=== PATIENT | female | born 1940 | race Caucasian/White ===

== ENCOUNTER 2022-04-19 11:28 | Emergency (ER) | payer MEDICARE, SELFPAY ==
--- NOTE | 2022-04-19 11:48 | ED_ITS ---
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 Everything went well, she states she was hydrating when she was preparing her garden, she was drinking lemonade and water, on Sunday she was resting in the kitchen in the chair. She does not know if she passed out or fell asleep, next thing you know she was on the ground. she hit the left side of her head, she is not currently on any blood thinners. she denies any back pain or neck pain. since then she has had increased fatigue, she has also had some lightheadedness, she does have a slight headache on that left temporal side. No nausea or vomiting, chest pain or shortness of breath, she has been eating and drinking but last. No history of any CAD or stroke. Patient usually ambulates without any difficulty. She denies any fevers, chills myalgias arthralgias. due to the recent fall and increased fatigue he has presents emergency department. Related Data Home Medications Medication Instructions Recorded Confirmed ascorbic acid (vitamin C) 1,000 mg 1 g PO DAILY 04/19/22 04/19/22 tablet (C-1000) betamethasone dipropionate 0.05 % 1 applic topical DAILY PRN 04/19/22 04/19/22 topical spray with pump calcipotriene 0.005 % topical cream applic topical PRN 04/19/22 estradiol cream 04/19/22 lisinopril 20 mg tablet 20 mg PO DAILY 04/19/22 04/19/22 metoprolol succinate 25 mg 25 mg PO DAILY 04/19/22 04/19/22 tablet,extended release 24 hr metronidazole 0.75 % topical cream applic topical BID 04/19/22 omeprazole 20 mg capsule,delayed 20 mg PO DAILY PRN 04/19/22 04/19/22 release sodium nitrate eye drop 1 drp ophthalmic (eye) BID 04/19/22 04/19/22 tocilizumab 200 mg/10 mL (20 280 mg IV Q3W 04/19/22 04/19/22 mg/mL) intravenous solution (Actemra) vit C 250 mg-vit E 90 mg-zinc 40 2 tab PO DAILY 04/19/22 04/19/22 mg-copper 1 [id number] capsule (PreserVision AREDS-2) zoledronic acid 5 mg/100 mL in 5 ea IV 04/19/22 mannitol 5 %-water intravenous piggybck (Reclast) Previous Rx's Medication Instructions Recorded fluticasone propionate 50 2 spray intranasal DAILY #16 grams 04/03/22 mcg/actuation nasal spray,suspension Allergies Allergy/AdvReac Type Severity Reaction Status Date / Time latex AdvReac Intermediate Rash Verified 04/19/22 12:31 Review of Systems Status of ROS: Reports: 10 or more systems reviewed and unremarkable except as noted in History and below PFSH [facility] Social History Smoking Status: Unknown if ever smoked Exam Narrative: Exam Narrative: general: no obvious distress sitting comfortably HEENT: chronic ecchymosis to the left temporal region, no step-offs, no associated contusion pupils equal round and reactive to light peripheral vision normal bilateral, extraocular muscles intact neck: supple, nontender to palpation, full range of motion lungs: clear to auscultation bilaterally heart: normal sinus rhythm, S1-S2 abdomen: bowel sounds present, soft, nontender to palpation extremities: +5 strength in her upper and lower extremities. no weakness. neuro: alert awake and oriented x3, no focal deficits on exam psych: mood and affect normal Const: Vital Signs, click to edit/add: Vital Signs - 24 hr 04/19/22 12:05 04/19/22 13:45 Temperature 98.4 F Pulse Rate [Pulse Oximeter] 78 76 Respiratory Rate 14 14 Blood Pressure [Ri ght Upper Arm] 136/81 143/80 H Pulse Oximetry 98 96 Oxygen Delivery Me thod Room Air Room Air Course Course Hospital Course: 12:00 PM: AIDET performed. vitals are normal. W workup will include IV peripheral, 0.9 normal saline bolus, will obtain CT head without IV contrast due to the moderate head injury and location, will obtain basic labs including CBC, BMP, troponin and EKG. patient does not want anything for pain at this time. Differential diagnosis include life-threatening of subarachnoid hemorrhage, subdural hemorrhage and epidural hemorrhage. Other differential diagnosis include concussion and close head injury as well as vasovagal episode orthostatics syncope seizures cardiac arrhythmia. Reevaluation(s) Reevaluation #1: Patient was updated on her EKG, lab and imaging results, CT head without IV contrast showed no acute intracranial abnormality. EKG showed a normal sinus rhythm with a incomplete right bundle branch block, BPM 72, no acute ST changes. Labs were reassuring, CBC showed no leukocytosis or anemia, metabolic panel within normal limits, no electrolyte abnormalities renal function within normal limits, troponin negative. Reassurance given, patient was ambulating with no difficulties, plan would be to discharge he will follow up with her primary care provider over the next 7-10 days. Return precautions given. Time: 13:34 Vital Signs Vital signs: Initial Vital Signs Temperature 98.4 F 04/19/22 12:05 Temperature Source Temporal Artery Scan 04/19/22 12:05 Pulse Rate 78 04/19/22 12:05 Respiratory Rate 14 04/19/22 12:05 Blood Pressure 136/81 04/19/22 12:05 Blood Pressure Mean 99 04/19/22 12:05 Blood Pressure Position Supine 04/19/22 12:05 Pulse Oximetry 98 04/19/22 12:05 Oxygen Delivery Method 04/19/22 12:05 Vital Signs Temperature 98.4 F 04/19/22 12:05 Pulse Rate 78 04/19/22 12:05 Respiratory Rate 14 04/19/22 12:05 Blood Pressure 136/81 04/19/22 12:05 Pulse Oximetry 98 04/19/22 12:05 Oxygen Delivery Method 04/19/22 12:05 Temperature 98.4 F 04/19/22 12:05 Pulse Rate 76 04/19/22 13:45 Respiratory Rate 14 04/19/22 13:45 Blood Pressure 143/80 H 04/19/22 13:45 Pulse Oximetry 96 04/19/22 13:45 Oxygen Delivery Method 04/19/22 13:45 Medical Decision Making Lab Data Labs: Lab Results 04/19/22 04/19/22 04/19/22 Range/Units 13:30 13:30 13:30 WBC 6.75 (4.50-11.00) K/uL RBC 4.76 (4.00-5.20) m/uL Hgb 13.5 (12.0-16.0) gm/dL Hct 42.1 (33.0-51.0) % MCV 88 (80-100) fL MCH 28 (26-34) pg MCHC 32 (32-36) gm/dL RDW Coeff of Luz 15.2 (11.5-15.5) % Plt Count 245 (140-440) K/uL Neut % (Auto) 57.6 (42.0-72.0) % Lymph % (Auto) 30.4 (20-44) % Beaver % (Auto) 8.6 (0.0-11.0) % Eos % (Auto) 2.2 (0.0-7.0) % Baso % (Auto) 0.9 (0.0-3.0) % Neut # (Auto) 3.89 (1.7-7.0) K/uL Lymph # (Auto) 2.05 (0.90-2.90) K/uL Beaver # (Auto) 0.60 (0.00-0.90) K/UL Eos # (Auto) 0.15 (0.00-0.50) K/uL Baso # (Auto) 0.06 (0.00-0.30) K/uL Abs Immat Gran (auto) 0.02 (0.00-0.30) K/uL Sodium 140 (135-149) mmol/L Potassium 4.3 (3.6-5.1) mmol/L Chloride 107 (96-114) mmol/L Carbon Dioxide 28 (20-32) mmol/L BUN 19 (7-30) mg/dL Creatinine 0.6 (0.5-1.5) mg/dL Estimated Creat Clear 38.10 Estimated GFR 90 ml/min Glucose 88 (60-115) mg/dL Calcium 8.8 (8.4-10.6) mg/dL Troponin I < 0.01 L (0.01-0.04) ng/mL Discharge Plan Discharge Clinical Impression: Fall from chair, Fatigue, Head injury Patient Disposition: Home, Self-Care Condition: Improved Instructions: Head Injury (ED), Fatigue (ED) Additional Instructions: To follow-up with primary care provider here at [facility] over the next 7-10 days, return precautions given. Activity Level: Activity as Tolerated Prescriptions: No Action lisinopril 20 mg tablet 20 mg PO DAILY Label Comments: TAKE 1 TABLET BY MOUTH EVERY DAY Actemra 200 mg/10 mL (20 mg/mL) solution 280 mg IV Q3W Rx Instructions: administer as a 1 hr infusion every 12-13 weeks omeprazole 20 mg capsule,delayed release(DR/EC) 20 mg PO DAILY PRN metoprolol succinate 25 mg tablet extended release 24 hr 25 mg PO DAILY sodium nitrate eye drop 1 drp ophthalmic (eye) BID Rx Instructions: both eyes twice daily ascorbic acid (vitamin C) [C-1000] 1,000 mg tablet 1 g PO DAILY PreserVision AREDS-2 250-90-40-1 mg capsule 2 tab PO DAILY zoledronic [id number] [Reclast] 5 mg/100 mL piggyback 5 ea IV Rx Instructions: 5mg, last infusion August 07 betamethasone dipropionate 0.05 % spray with pump 1 applic topical DAILY PRN calcipotriene 0.005 % cream TOPICAL PRN Label Comments: APPLY TO THE BODY AREAS TWICE DAILY ON SUNDAY, SUNDAY, SUNDAY AND SUNDAY. metronidazole 0.75 % cream TOPICAL BID Label Comments: APPLY TO THE FACE 2 TIMES A DAY estradiol cream fluticasone propionate 50 mcg/actuation spray,suspension 2 spray intranasal DAILY Qty: 16 2RF Rx Instructions: administer into each nostril Follow Up/Referrals: Sadiq Santana MD [Primary Care Provider] - Stand Alone Forms: [facility] Info Instructions
[2022-04-19 12:05] VITALS: BP 136/81; PULSE 78; RESP 14; TEMP 36.9; O2SAT 98; BMI 21.1
--- NOTE | 2022-04-19 12:17 | CRLHL7_ITS ---
For Patients: As a result of the Century Cures Act, medical imaging exams and procedure reports are released immediately into your electronic medical record. You may view this report before your referring provider. If you have questions, please contact your health care provider. INDICATION: FALL ON TEMPORAL AREA. ?LOC TECHNIQUE: Head CT without contrast. COMPARISON: None. FINDINGS: There are moderate nonspecific low attenuation white matter changes consistent with chronic microvascular disease. No intraparenchymal hemorrhage or extra-axial fluid collection. Cronin-white junction is preserved. Mild parenchymal volume loss. Mild prominence of the ventricular system likely related to expected dilatation due to central volume loss. The visualized paranasal sinuses and mastoid air cells demonstrate no acute or significant findings. The visualized orbits are grossly unremarkable. No skull fractures. IMPRESSION: No acute intracranial abnormality. Specifically, no evidence of intracranial hemorrhage. Moderate chronic microvascular ischemic changes. Please note that all CT scans at this facility use dose modulation, iterative reconstruction, and/or weight-based dosing when appropriate to reduce radiation dose to as low as reasonably achievable. Dictated by Fernando Youssef MD @ 04/19/2022 1:30:49 PM (Electronically Signed)
[2022-04-19 13:40] LABS: Basophils Absolute Auto 0.06 K/uL (0.00-0.30); Basophils Percent Auto 0.9 % (0.0-3.0); Eosinophils Absolute Auto 0.15 K/uL (0.00-0.50); Eosinophils Percent Auto 2.2 % (0.0-7.0); Hematocrit 42.1 % (33.0-51.0); Hemoglobin* 13.5 gm/dL (12.0-16.0); Immature Granulocytes Abs Auto 0.02 K/uL (0.00-0.30); Lymphocytes Absolute Auto 2.05 K/uL (0.90-2.90); Lymphocytes Percent Auto 30.4 % (20-44); Mean Corpuscular HGB Conc 32 gm/dL (32-36); Mean Corpuscular Hemoglobin 28 pg (26-34); Mean Corpuscular Volume 88 fL (80-100); Monocytes Percent Auto 8.6 % (0.0-11.0); Neutrophils Absolute Auto 3.89 K/uL (1.7-7.0); Neutrophils Percent Auto 57.6 % (42.0-72.0); Platelet Count* 245 K/uL (140-440); RDW Coefficient of Variation % 15.2 % (11.5-15.5); Red Blood Count 4.76 m/uL (4.00-5.20); White Blood Count* 6.75 K/uL (4.50-11.00)
[2022-04-19 13:45] VITALS: BP 143/80; PULSE 76; RESP 14; O2SAT 96
[2022-04-19 14:06] LABS: Chloride* 107 mmol/L (96-114); Potassium* 4.3 mmol/L (3.6-5.1); Sodium* 140 mmol/L (135-149)
[2022-04-19 14:09] LABS: Blood Urea Nitrogen* 19 mg/dL (7-30); Calcium* 8.8 mg/dL (8.4-10.6); Carbon Dioxide* 28 mmol/L (20-32); Creatinine* 0.6 mg/dL (0.5-1.5); Estimated Glomerular Filt Rate 90 ml/min; Glucose* 88 mg/dL (60-115)
[2022-04-19 14:23] LABS: Troponin I* < 0.01 ng/mL (0.01-0.04)
[2022-04-19 14:28] LABS: Slide Review Reflex No
[2022-04-19 14:30] VITALS: BP 152/66; PULSE 75; RESP 14; O2SAT 98
== END 2022-04-19 14:44 | disposition home or self-care (01) ==
PROVIDERS: Emergency Provider Student in an Organized Health Care Education/Training Program; PCP Family Medicine
DX: R53.83 Other fatigue (principal); S09.90XA Unspecified injury of head, initial encounter; W07.XXXA Fall from chair, initial encounter
CPT/HCPCS: 36415; 70450; 80048; 84484; 85025; 93005; 99283; 99284

== ENCOUNTER 2022-06-27 11:29 | Outpatient (CLI) | payer MEDICARE, SELFPAY ==
[2022-06-27 13:47] LABS: Chloride* 104 mmol/L (96-114); Potassium* 4.2 mmol/L (3.6-5.1); Sodium* 141 mmol/L (135-149)
[2022-06-27 13:50] LABS: Blood Urea Nitrogen* 17 mg/dL (7-30); Carbon Dioxide* 28 mmol/L (20-32); Cholesterol* 200 mg/dL (90-199); Creatinine* 0.6 mg/dL (0.5-1.5); Estimated Glomerular Filt Rate 90 ml/min; Glucose* 107 mg/dL (60-115)
[2022-06-27 13:51] LABS: HDL Cholesterol* 73 mg/dL (>=50); LDL Cholesterol Calculated 109 mg/dL (<100); Triglycerides* 88 mg/dL (40-149)
== END 2022-06-27 11:30 | disposition home or self-care (01) ==
PROVIDERS: PCP Family Medicine; Visit Provider Family Medicine
DX: Z00.00 Encounter for general adult medical examination without abnormal findings (principal); I10 Essential (primary) hypertension; Z13.6 Encounter for screening for cardiovascular disorders
CPT/HCPCS: 80048; 80061

== ENCOUNTER 2022-07-10 13:35 | Outpatient (CLI) | payer MEDICARE, SELFPAY ==
--- NOTE | 2022-07-10 14:00 | CRLHL7_ITS ---
For Patients: As a result of the Cures Act, medical imaging exams and procedure reports are released immediately into your electronic medical record. You may view this report before your referring provider. If you have questions, please contact your health care provider. BILATERAL SCREENING MAMMOGRAM WITH COMPUTER-AIDED DETECTION AND TOMOSYNTHESIS TECHNIQUE: CC and MLO views were obtained. These mammographic images have been obtained using full-field digital technique. These mammographic images were interpreted with the benefit of computer-aided detection. Breast Tomosynthesis was used in this interpretation. COMPARISON FILM: 05/09/2021. FINDINGS: The breasts are heterogeneously dense, which may obscure small masses IMPRESSION: There is no radiographic evidence for malignancy. ASSESSMENT: BI-RADS Category 2: Benign RECOMMENDATION: Routine screening mammogram in 1 year. A lay language report of this examination will be provided to the patient. Martín Bartholomew M.D. Diagnostic/Musculoskeletal Radiologist [email or web address] SCOT/[email or web address] Transcribed: 5:15 p.mMarie ojeda/Dictated by: Martín Bartholomew MD @ 07/11/2022 8:04:00 AM (Electronically Signed)
== END 2022-07-10 13:36 | disposition home or self-care (01) ==
LOC: MAMMO 13:38
PROVIDERS: PCP Family Medicine; Visit Provider Family Medicine
DX: Z12.31 Encounter for screening mammogram for malignant neoplasm of breast (principal)
CPT/HCPCS: 77063; 77067

== ENCOUNTER 2023-09-24 13:09 | Outpatient (CLI) | payer MEDICARE, SELFPAY | END 2023-09-24 13:10 | disposition home or self-care (01) | PROVIDERS: PCP Family Medicine; Referring Provider Family Medicine; Visit Provider Family Medicine | DX: R32 Unspecified urinary incontinence (principal); N95.0 Postmenopausal bleeding; E78.5 Hyperlipidemia, unspecified; I10 Essential (primary) hypertension; M81.0 Age-related osteoporosis without current pathological fracture; M31.6 Other giant cell arteritis; L40.9 Psoriasis, unspecified | CPT/HCPCS: 80048; 80061 ==

== ENCOUNTER 2024-06-27 13:10 | Outpatient (CLI) | payer MEDICARE, SELFPAY | END 2024-06-27 13:11 | disposition home or self-care (01) | LOC: LKVREF 13:13 | PROVIDERS: PCP Family Medicine; Visit Provider Family Medicine | DX: R00.2 Palpitations (principal); R10.13 Epigastric pain | CPT/HCPCS: 80053 ==

== ENCOUNTER 2024-07-08 08:49 | Outpatient (CLI) | payer MEDICARE, SELFPAY ==
--- NOTE | 2024-07-08 09:15 | CRLHL7_ITS ---
For Patients: As a result of the Century Cures Act, medical imaging exams and procedure reports are released immediately into your electronic medical record. You may view this report before your referring provider. If you have questions, please contact your health care provider. INDICATION: Epigastric abdominal pain. TECHNIQUE: Right upper quadrant ultrasound. COMPARISON: None. FINDINGS: There is no evidence for gallstones or biliary dilatation. There is a 3 x 2 x 4 mm subtly echogenic polyp within the gallbladder fundus. The gallbladder wall measures 2 mm. The common bile duct measures 6.5 mm. No sonographic Velasquez`s sign. The liver is negative for masses or biliary dilatation. The pancreas is unremarkable except for a 3 x 2 x 2 mm cyst within the distal pancreatic body/tail possibly a tiny IPMN. No upper abdominal ascites. The right kidney measures 11.4 x 4.7 x 5.1 cm. There appears to be a cortical cyst in the right kidney measuring 3.5 x 1.9 x 3.3 cm. There is also the suggestion of right-sided hydronephrosis or less likely parapelvic cysts. Consider a CT of the abdomen with attention directed to the right kidney. The visualized abdominal aorta and IVC are unremarkable. IMPRESSION: 1. No gallstones or biliary dilatation. No sonographic Velasquez`s sign. 2. 3 mm fundal polyp within the gallbladder. 3. 3 mm pancreatic cyst mid pancreatic body/proximal tail possibly an IPMN. 4. Possible right-sided hydronephrosis for which a CT of the abdomen is recommended. Dictated by Anthony Miller MD @ 07/09/2024 1:59:53 PM (Electronically Signed)
== END 2024-07-08 08:50 | disposition home or self-care (01) ==
LOC: US 08:50
PROVIDERS: PCP Family Medicine; Visit Provider Family Medicine
DX: R10.13 Epigastric pain (principal); K82.4 Cholesterolosis of gallbladder; K86.2 Cyst of pancreas; R94.4 Abnormal results of kidney function studies
CPT/HCPCS: 76705

== ENCOUNTER 2024-07-29 16:15 | Outpatient (CLI) | payer MEDICARE, SELFPAY ==
--- NOTE | 2024-07-29 16:45 | CRLHL7_ITS ---
For Patients: As a result of the Century Cures Act, medical imaging exams and procedure reports are released immediately into your electronic medical record. You may view this report before your referring provider. If you have questions, please contact your health care provider. INDICATION: Right upper quadrant pain. TECHNIQUE: CT abdomen and pelvis acquired without and with 62 mL Isovue 370 contrast. COMPARISON: Right upper quadrant ultrasound dated 07/08/2024. FINDINGS: Lower chest: Scattered subsegmental atelectasis. 0.3 cm pulmonary nodule in the lingula. No focal consolidation. Liver: Too small to characterize hypodense lesion in segment 6, likely benign in the absence of a known malignancy. Gallbladder and bile ducts: Unremarkable. Pancreas: Unremarkable. Spleen: Unremarkable. Adrenal glands: Unremarkable. Kidneys: Kidneys appear to enhance relatively symmetrically. No definite hydronephrosis. Numerous too small to characterize hypodense bilateral renal lesions. Numerous bilateral parapelvic cysts versus sequelae of chronic UPJ obstruction. Multiple subcentimeter nonobstructing left renal calculi. Retroperitoneum: No lymphadenopathy. Bowel and mesentery: Limited evaluation of the colon secondary to redundancy. Scattered colonic diverticulosis, without evidence of acute diverticulitis. No significant ascites. No pneumoperitoneum. No evidence of bowel obstruction. Large partially visualized hiatal hernia, with the entirety of the stomach contained within the thorax. Bladder: Mild pericystic inflammation. Reproductive organs: Calcified uterine fibroids. Vaginal pessary device is noted. Pelvic lymph nodes: No lymphadenopathy. Vessels: Atherosclerotic calcifications. Abdominal wall: No acute abdominal wall abnormality. Bones: Extensive multilevel degenerative changes of the spine. Bones are osteopenic. Scoliosis. IMPRESSION: 1. Large partially visualized hiatal hernia, with the entirety of the stomach contained within the thorax. 2. Mild pericystic inflammation, concerning for cystitis. 3. Multiple subcentimeter nonobstructing left renal calculi. 4. 0.3 cm pulmonary nodule in the lingula. Consider optional follow up CT chest in 12 months, per Fleischner guidelines. Please note that all CT scans at this facility use dose modulation, iterative reconstruction, and/or weight-based dosing when appropriate to reduce radiation dose to as low as reasonably achievable. Dictated by Frannie Palumbo MD @ 07/29/2024 6:30:35 PM (Electronically Signed)
== END 2024-07-29 16:16 | disposition home or self-care (01) ==
PROVIDERS: PCP Family Medicine; Visit Provider Family Medicine
DX: R10.11 Right upper quadrant pain (principal); K44.9 Diaphragmatic hernia without obstruction or gangrene; N20.0 Calculus of kidney; R91.8 Other nonspecific abnormal finding of lung field; N13.30 Unspecified hydronephrosis
CPT/HCPCS: 74178; 80053; 87086; 87186; Q9967

== ENCOUNTER 2024-08-11 12:25 | Outpatient (CLI) | payer MEDICARE, SELFPAY | END 2024-08-11 12:26 | disposition home or self-care (01) | LOC: NFLDREF 08-13 12:43 | PROVIDERS: PCP Family Medicine; Referring Provider Family Medicine; Visit Provider Family Medicine | DX: N39.0 Urinary tract infection, site not specified (principal); R10.13 Epigastric pain; K21.9 Gastro-esophageal reflux disease without esophagitis; J30.9 Allergic rhinitis, unspecified | CPT/HCPCS: 87086; 87186 ==

== ENCOUNTER 2024-12-09 08:55 | Outpatient (CLI) | payer MEDICARE, SELFPAY | END 2024-12-09 08:56 | disposition home or self-care (01) | LOC: NFLDREF 12-10 06:15 | PROVIDERS: PCP Family Medicine; Referring Provider Family Medicine; Visit Provider Family Medicine | DX: E78.5 Hyperlipidemia, unspecified (principal); I10 Essential (primary) hypertension | CPT/HCPCS: 80061 ==

== ENCOUNTER 2025-01-29 13:42 | Outpatient (CLI) | payer MEDICARE, SELFPAY | END 2025-01-29 13:43 | disposition home or self-care (01) | LOC: LKVREF 13:46 | PROVIDERS: PCP Family Medicine; Visit Provider Family Medicine | DX: I10 Essential (primary) hypertension (principal) | CPT/HCPCS: 80048 ==

== ENCOUNTER 2025-03-15 13:44 | Observation (INO) | payer MEDICARE, SELFPAY ==
[2025-03-15] VITALS (18 sets, daily range): BP systolic 125–187; BP diastolic 53–91; PULSE 69–84; RESP 16–18; TEMP 36.6–37.7; O2SAT 93–100; BMI 20.9
--- OUTSIDE RECORDS SUMMARY | 2025-03-15 13:47 | XMS_ITS | Clinical Summary ---
Author Organization [employer] [facility] Address [address] [place] [id number] Care Team Providers Care Employee Development Director Name Role Phone Sadiq Santana MD Primary Care Provider [phone] Allergies Active Allergy Reactions Criticality Noted Date Comments Doxycycline Other - Describe In Comment Field High 0 12/12/2024 Latex Rash High 12/12/2024 Medications omeprazole 20 mg Delayed-Release capsule Take 20 mg by mouth once daily before a meal. Active lisinopriL 20 mg tablet Take 20 mg by mouth once daily. 11/26/19 25 Active vit C/E/zinc ox/kasey/lut/zeax (ICAPS AREDS2 ORAL) Take 1 Tablet by mouth once daily. Active ascorbic acid (vitamin C) (Vitamin C) 1,000 mg tablet Take 1,000 mg by mouth once daily. Active omega-3/dha/epa/dp a/fish oil (OMEGA-3 2100 ORAL) Take by mouth. Activ e White Petrolatum-Mineral Oil (Refresh P.M.) 57.3-42.5 % ophthalmic ointment Apply 1.25 Strips to affected eye(s). Active albuterol HFA 90 mcg/actuation inhaler 2 Puffs every 6 hours if needed. 12/27/19 25 Active metroNIDAZOLE 0.75 % cream Apply topically to affected area(s) two times daily. Active Lactobacillus acidophilus 1 billion cell cap Take by mouth. Active calcipotriene 0.005 % cream Apply topically to affected area(s) two times daily. Active polyethylene glycoL 17 gram/scoop powderIndications: Hiatal hernia Mix 1 scoop (17 g) in liquid then take by mouth once daily. Start on POD # 1. 238 g 5 9:21 AM CDT 02/05/20 25 Active omeprazole 20 mg Delayed-Release capsuleIndications :Hiatal hernia Take 1 Capsule (20 mg) by mouth once daily before a meal. For 2 months after surgery 60 Capsule 5 9:21 AM CDT 02/05/20 25 025 Active fluticasone (50 mcg per actuation) nasal solution (FLONASE) 2 SPRAY INTRANASALLY EVERY DAY ADMINISTER INTO EACH NOSTRIL 10/03/19 25 Active cyclobenzaprine 5 mg tablet Take 5 mg by mouth one time. Active tocilizumab 20 mg/mL injectionIndicatio ns:Temporal arteritis (HC) Inject every 10 weeks, dose based on weight and inflammatory markers. 03/03/20 25 Active NaCl 0.9% solp with tocilizumab 20 mg/mL soln 233 mg Inject 233 mg intravenous once a month. Dosed every 10 weeks (2.5 months) 025 Discontin ued(*Med complete/ Regimen complete/ Level of care change) famotidine 40 mg tablet Take 20 mg by mouth once daily. 11/03/19 25 025 Discontin ued(*Med complete/ Regimen complete/ Level of care change) amLODIPine 2.5 mg tablet Take 2.5 mg by mouth once daily. 12/16/19 25 025 Discontin ued(*Med complete/ Regimen complete/ Level of care change) TOCILIZUMAB IV Inject 280 mg intravenous. EVERY 10 WEEKS 025 Discontin ued(*Med complete/ Regimen complete/ Level of care change) HYDROmorphone 2 mg tabletIndications: Hiatal hernia Take 1-2 Tablets (2-4 mg) by mouth every 4 hours if needed for Pain. 10 Tablet 5 9:21 AM CDT 02/05/20 25 025 Discontin ued(*Med complete/ Regimen complete/ Level of care change) sennosides-docusat e (8.6-50 mg) tabletIndications: Hiatal hernia Take 1 Tablet by mouth two times daily. Start day of discharge from hospital. 20 Tablet 5 9:21 AM CDT 02/05/20 25 025 Discontin ued(*Med complete/ Regimen complete/ Level of care change) ondansetron 4 mg disintegrating tabletIndications: Hiatal hernia Place 1 Tablet (4 mg) on the tongue every 8 hours if needed for Nausea/Vomiting . 30 Tablet 5 9:21 AM CDT 02/05/20 25 025 Discontin ued(*Med complete/ Regimen complete/ Level of care change) hyoscyamine sublingual 0.125 mg sublIndications:Hi atal hernia Place 1 Tablet (0.125 mg) under the tongue every 4 hours if needed (for painful drinking/swallo wing). 30 Tablet 5 9:21 AM CDT 02/05/20 25 025 Discontin ued(*Med complete/ Regimen complete/ Level of care change) methocarbamoL 500 mg tabletIndications: Hiatal hernia Take 0.5-1 Tablets (250-500 mg) by mouth every 8 hours if needed for Muscle Spasm. 15 Tablet 5 9:21 AM CDT 02/05/20 025 Discontin ued(*Med complete/ Regimen complete/ Level of care change) Active Problems Problem Noted Date Diagnosed Date s/p repair of Hiatal hernia with partial fundopl ication 02/04/2025 Gastroesophageal reflux disease 01/19/2025 Hiatal hernia 01/19/2025 Hiatal hernia Encounters Date Type Department Care Team Description 03/03/2025 10:00 AM CDT Office Visit [facility] [address] [facility] [address] [place] [address] Verona Quintero PA Surgical Followup (repair of Hiatal hernia with partial fundoplication with Dr. Guille Juárez 02/04/25) 03/02/2025 Travel 02/26/2025 Travel 02/12/2025 11:00 AM CDT Nurse/Clinic Staff Only [facility] [address] [facility] [address] [place] [address] Nurse/Clinic Staff Only (RORO Drain Removal) 02/11/2025 Travel 02/10/2025 3:00 PM CDT Nurse/Clinic Staff Only [facility] [address] [place] [address] [place] [address] Surgical Followup (S/P Robot ic large hiatal hernia repair With 270 degree fundoplication, DOS: 02/04/25, w/ Dr. Juárez) 02/09/2025 Travel 02/05/2025 Travel 02/04/2025 12:56 PM CDT Anesthesia Event [address] [place] [address] Fernando Vega MD 02/04/2025 11:55 AM CDT - 02/04/2025 2:30 PM CDT Surgery [address] [place] [address] Guille Juárez MD Robotic large hiatal hernia repair 02/04/2025 10:04 AM CDT - 02/05/2025 7:16 PM CDT Hospital Encounter [address] [place] [address] Guille Juárez MD s/p repair of Hiatal hernia with partial fundoplication (Primary Dx) Discharge Disposition: Home Self Care 02/02/2025 Travel 01/30/[address] [place] [address] Guille Juárez MD Surgery Scheduled 01/27/2025 1:30 PM CDT Office Visit [facility] [address] [place] [address] [place] [address] Guille Juárez MD Follow Up (GERD/ Hiatal Hernia- Follow up on results) 01/26/2025 Travel 01/20/[address] [place] [address] Guille Juárez MD Care Coordination 01/19/2025 9:33 AM CDT Anesthesia Event [address] [place] [address] Riki Campos MD Hoffman, Dena Marie, PABLO 01/19/2025 9:25 AM CDT - 01/19/2025 9:55 AM CDT Surgery [place] [address] [address] [place] [address] Guille Juárez MD ESOPHAGOGASTRODUODENOSCOPY WITH BIOPSY 01/19/2025 8:20 AM CDT - 01/19/2025 10:25 AM CDT Hospital Encounter [address] [place] [address] Guille Juárez MD Discharge Disposition: Home Self Care 01/19/2025 Travel 01/07/2025 8:41 AM CDT - 01/07/2025 11:59 PM CDT Hospital Encounter [address] [place] [address] Guille Juárez MD Hiatal hernia; Epigastric pain 01/07/2025 Travel 12/18/2024 10:30 AM CDT Office Visit [facility] [address] [facility] [address] [place] [address] Guille Juárez MD Consult (Hiatal Hernia- massive per the pt. 1st issue was in 06/2024) 12/18/2024 Travel 12/17/2024 Telephone [facility] [address] [facility] [address] [place] [address] Guille Juárez MD Care Coordination 12/16/2024 Travel 12/14/2024 Transcribe Orders [facility] [address] [place] [address] Sadiq Santana MD from Last 3 Months Social History Tobacco Use Types Packs/Day Years Used Date Smoking Tobacco: Former Cigarettes 0 1969 - 1959 Smokeless Tobacco: Never Alcohol Use Standard Drinks/Week Comments Not Currently 0 (1 standard drink = 0.6 oz pur e alcohol) Social Connections Answer Date Recorded Do you often feel lonely or isolated from those around you? 0 02/05/2025 Financial Resource Strain Answer Date R ecorded Difficulty of Paying Living Expenses 3 02/05/2025 Difficulty of Paying Living Expenses Not on file 02/05/2025 Food Insecurity Answer Date Recorded Do you worry your food will run out before you are able to buy more? 1 02/05/2025 Transportation Needs Answer Date Record ed Does lack of transportation keep you from medica l appointments? 1 02/05/2025 Does lack of transportation keep you from work, meetings or getting things that you need? 1 02/05/2025 Housing Stability Answer Date Recorded What is your housing situation today? 1 02/05/2025 Interpersonal Safety Answer Date Record ed Are you being hit, kicked, p ushed or yelled at (see row info)? No 02/05/2025 Interpersonal Safety Abuse 12 - 18 Not on file 02/05/2025 Interpersonal Safety Ambulatory Vulnerability No t on file 02/05/2025 Utilities Answer Date Recorded Do you have trouble paying f or utilities (for example, heat, electricity, water, phone)? 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[employer] Gender Identity Female 12/16/2024 2:51 PM CDT Sexual Orientation Not on file Obstetrics History Last Filed Vital Signs Vital Sign Reading Time Taken Comments Blood Pressure 144/78 03/03/2025 10:01 AM CDT Pulse 76 03/03/2025 10:01 AM CDT Temperature 36.8 C (98.2 F) 03/03/2025 10:01 AM CDT Respiratory Rate 18 02/05/2025 4:00 PM CDT Oxygen Saturation 96% 02/05/2025 4:00 PM CDT Inhaled Oxygen Concentration - - Weight 55.8 kg (123 lb) 03/03/2025 10:01 AM CDT Height 165.1 cm (5' 5) 02/04/2025 10:23 AM CDT Body Mass Index 20.47 02/04/2025 10:23 AM CDT Plan of Treatment Health Maintenance Due Date Last Done Comments Tdap 1951 Depression screening for age 12+ 1952 Zoster (shingles) series for age 50+ (1 of 2) 1959 Tetanus booster 1960 Pneumococcal series for age 50+ (1 of 1 - PCV) 1990 Medicare Wellness for age 65+ 2005 RSV vaccine for adults or (1 - 1-dose 75+ series) 2015 COVID-19 vaccine series (8 - Pfizer risk season) 2025 08/15/2024, 09/24/2023, 08/27/2022, Additional history exists Influenza Vaccine (Season Ended) 2025 BMI (ht and wt on same day) for age 18+ 01/27/2026 01/27/2025 DEXA/DXA scan for age 65+ Completed 04/17/2012 Hepatitis B series for 19+ Aged Out N o longer eligible based on patient's age to complete this topic Procedures Procedure Name Priority Date/Time Associated Diagnosis Comments ENDOTRACHEAL TUBE Routine 02/04/2025 1:43 PM CDT ENDOTRACHEAL TUBE Routine 02/04/2025 1:43 PM CDT ROBOTIC ASSISTED CLAUDY FUNDOPLICATION XI Class E Urgent 02/04/2025 12:36 PM CDT Hiatal hernia ROBOTIC ASSISTED HIATAL HERNIORRHAPHY XI Class E Urgent 02/04/2025 12:36 PM CDT Hiatal hernia PLATELET COUNT STAT 02/04/2025 10:36 AM CDT SCAN-CARDIAC STRIP 02/04/2025 12:00 AM CDT PATH TISSUE EXAM Today 01/19/2025 9:31 AM CDT ENDOSCOPY 01/19/2025 9:29 AM CDT ESOPHAGOGASTRODUODENOSCOPY W ITH BIOPSY 01/19/2025 9:27 AM CDT Hiatal hernia and GERD XR UPPER GI Routine 01/07/2025 9:21 AM CDT Hiatal hernia Epigastric pain SCAN-BONE DENSITOMETRY DEXA 09/2011 12:00 AM CDT from Last 3 Months or Most Recently Relevant to Health Maintenance Results * HCHG TUBE PR1, HCHG STYLET PR1 (02/04/2025 1:43 PM CDT) Narrative Lucero Burroughs CRNA - 02/04/2025 1:43 PM CDT Lucero Burroughs CRNA 02/04/2025 1:44 PM Procedure: ETT Patient location during procedure: OR ETT Properties Mask Ventilation: easy and oral airway Final Technique: direct laryngoscopy Type: straight Location: oral Cuffed: yes Tube Size: 7.0 mm Stylet: yes Laryngoscope Blade: Mac Blade Size: 4 Cormack-Lehane Grade View: 2 Insertion Attempts: 1 Placement Verification: auscultation, end tidal CO2 and symmetrical chest wall movement Assessment: pharynx clear, atraumatic and dentition unchanged Secured at: 22 Measured From: lips Bite Block: soft and molar Difficulty: 0 (not difficult) us Fernando Vega MD ANESTHESIA PX NOTE ORDERA BLES Final Result * PLATELET COUNT (02/04/2025 10:36 AM CDT) PLATELET COUNT 259 140 - 440 thou/cu mm 02/04/2025 10:40 AM CDT [facility] MPV 9.9 6.5 - 11.0 fL 02/04/2025 10:40 AM CDT [facility] Blood BLOOD SPECIMEN / Unknown Venipuncture / Unknown 02/04/2025 10:36 AM CDT 02/04/2025 10:38 AM CDT us [facility] Final Resul t [facility] [address] [place] [id number] * SCAN-CARDIAC STRIP (02/04/2025 12:00 AM CDT) Narrative 02/04/2025 12:00 AM CDT Ordered by an unspecified provider. us Other Clinical Staff OTHER Final Resul t * PATH TISSUE EXAM (01/19/2025 9:31 AM CDT) Case Report Pathology Report Case: [id number] Authorizing Provider: Guille Juárez MD Collected: 01/19/2025 0931 Ordering Location: [facility] Received: 01/19/[address] [place] [address] Pathologist: Julio Barbosa MD Specimens: A) - Antrum Biopsy B) - Distal Esophagus Biopsy 10:44 AM CDT [facility] Final Diagnosis A) STOMACH, ANTRUM, BIOPSY: 1. Mild non-specific chronic inflammation (see comment) a. Sampling: Antral mucosa b. Distribution: Antral mucosa 2. Negative for atrophic gastritis 3. Negative for Helicobacter (Helicobacter immunohistochemistry negative) B) ESOPHAGUS, DISTAL, BIOPSY: 1. Normal esophageal squamous mucosa 2. Negative for reflux changes and eosinophilic esophagitis 3. Negative for columnar mucosa 10:44 AM CDT [facility] at 1043 CDT Comment A) Mild chronic inflammation in the stomach in the absence of Helicobacter often remains unexplained, but it could reflect prior or treated Helicobacter infection. The likelihood of histologically undetected Helicobacter is quite low in our opinion. Reviewed with Dr. Woods. 10:44 AM CDT [facility] Clinical Information Ms. Mills is a 84 y.o. with suspected GERD who undergoes upper GI endoscopy. 10:44 AM CDT [facility] Gross Description A) Received in formalin are 4 meza mucosal fragments averaging 2 mm in greatest dimension, which are entirely submitted in one cassette. It is labeled with the patient's name and designated antrum. B) Received in formalin are 4 meza mucosal fragments averaging 2 mm in greatest dimension, which are entirely submitted in one cassette. It is labeled with the patient's name and designated distal esophagus biopsy. Myra Maninder 01/19/2025 4:32 PM 10:44 AM CDT [facility] Microscopic Description The final diagnosis is based on microscopic examination of appropriate sections of all specimens. 10:44 AM CDT [facility] Additional Information Interpreted at [facility] - [address], [place] [address] Immunohistochemistry controls were reviewed and approved as appropriate by the pathologist during this examination. 10:44 AM CDT [facility] Biopsy (Antrum Biopsy) 01/19/2025 9:31 AM CDT 01/19/2025 10:37 AM CDT Biopsy specimen (specimen) (Distal Esophagus Biopsy) 01/19/2025 9:31 AM CDT 01/19/2025 10:37 AM CDT us Guille Juárez MD PATHOLOGY/CYTOLOGY Final Res ult [facility] [address] [place] [address], [place] * ENDOSCOPY (01/19/2025 9:29 AM CDT) 01/19/2025 9:29 AM CDT Narrative Transcriptions Guille Juárez MD - 01/19/2025 10:04 AM CDT Endoscopy Patient Name: Mary Grace Mills Procedure Date: 01/19/2025 Gender: Female Date of : 1940 Admit Type: Ambulatory Procedure: Upper GI endoscopy Proceduralist: Guille Juárez MD Referring MD: Guille Juárez MD Indications/Pre-Op Diagnosis: Suspected gastro-esophageal reflux disease. Hiatal hernia. Medications: Monitored Anesthesia Care Procedure Description: Risk of bleeding, infection, perforation, need for surgery and alternatives discussed. The endoscope [id number] was introduced through the mouth, and advanced to the second part of duodenum. The upper GI endoscopy was accomplished without difficulty. The patient tolerated the procedure well. Complications: No immediate complications. Estimated Blood Loss & Specimen: Estimated blood loss was minimal. Specimen collected: Yes and sent to Laboratory Findings: The esophagus was normal. Biopsies of the distal esophagus were taken with a cold forceps for histology. The entire examined stomach was normal. Biopsies were taken with acold forceps for Helicobacter pylori testing. The examined duodenum was normal. The Z-line was regular and was found 34 cm from the incisors. A large hiatal hernia was present. Most of the stomach was above the diaphragm. Impressions/Post-Op Diagnosis: - Normal esophagus. Biopsied. - Normal stomach. Biopsied. - Normal examined duodenum. - Z-line regular, 34 cm from the incisors. - Large hiatal hernia. Recommendation: - Continue present medications. - A letter will be sent to the patient with pathology results and any future recommendations. - She will follow-up with me in the clinic to discuss her testing results and her hiatal hernia. Guille Juárez MD 01/19/2025 9:59:49 AM This report has been signed electronically. Note Initiated On: 01/19/2025 9:29 AM Total Procedure Duration Time 0 hours 6 minutes 20 seconds us Guille Juárez MD PROCEDURE ORD Final Result * XR UPPER GI (01/07/2025 9:21 AM CDT) Anatomical Region Laterality Modality STOMACH Digital Radiogra phy, Computed Tomography 01/07/2025 10:2 7 AM CDT Addenda Addendum by Cleve Rendon MD on 01/08/2025 3:33 PM CDT For Patients: As a result of the Century Cures Act, medical imaging exams and procedure reports are released immediately into your electronic medical record. You may view this report before your referring provider. If you have questions, please contact your health care provider. Indication: Hiatal hernia, epigastric pain. Technique: Fluoroscopic upper gastrointestinal examination. Comparison: None. Findings: This examination was performed by Sp BROWN. The esophagus was initially evaluated in upright positioning. No esophageal mass, stricture or mucosal lesion is seen. There is a large retrocardiac hiatal hernia containing the majority of the stomach. Esophageal motility with the marshmallow/bagel study was considered normal with adequate clearance. Limited assessment of the gastric lumen, duodenum and proximal jejunum is unremarkable. 2 minutes 53 seconds of fluoroscopy time was utilized for this examination and 14 fluoro spot images/cine loops were obtained (3335 images). Impression: 1. Large retrocardiac hiatal hernia contains the majority of the stomach. 2. Adequate esophageal clearance/motility. Dictated by Cleve Rendon MD @ 01/08/2025 3:33:55 PM (Electronically Signed) Narrative 01/07/2025 10:43 AM CDT --- Preliminary Report --- --XRay UPPER GI Barium 155 ccs-- large paraesophageal hernia. Normal motility of marshmallow/Bagel study Preliminary Report by Dr. Sp Sotelo @ Jan 07 2025 10:27AM --- Preliminary Report --- Procedure Note Sp Sotelo PA / Cleve Rendon MD - 01/07/2025 --- Preliminary Report --- --XRay UPPER GI Barium 155 ccs-- large paraesophageal hernia. Normal motility of marshmallow/Bagel study Preliminary Report by Dr. Sp Sotelo @ Jan 07 2025 10:27AM --- Preliminary Report --- us Guille Juárez MD FLUOROSCOPY Edited Resul t - Final * SCAN-BONE DENSITOMETRY DEXA (04/17/2012 12:00 AM CDT) Anatomical Region Laterality Modality Other Narrative Transcriptions Scanner - 04/17/2012 12:00 AM CDT us Scanner OTHER Final Result from Last 3 Months or Most Recently Relevant to Health Maintenance Insurance [facility] MEDICARE ADVANTAGE MR MEDICARE PART A HB ONLY [phone] [place] [address] Advance Directives Documents on File Type Date Recorded Patient Health Insurance Agent Expl anation Healthcare Directive 02/03/2025 025 * Full Code (Latest Code Status on File) Date Activated Date Inactivated Comments 02/04/2025 4:12 PM 02/05/2025 9:23 PM Question Answer Comments Code Status Discussion: Reviewed Preferences * Full Code Date Activated Date Inactivated Comments 02/04/2025 10:12 AM 02/04/2025 4:12 PM Question Answer Comments Code Status Discussion: Reviewed Preferences * Full Code Date Activated Date Inactivated Comments 01/19/2025 8:40 AM 01/19/2025 12:33 PM Question Answer Comments Code Status Discussion: Reviewed Preferences Care Teams Employee Development Director Relationship Specialty Start Date End Date Sadiq Santana MD [address] [place] [address] PCP - General Family Practice 12/18/24
--- OUTSIDE RECORDS SUMMARY | 2025-03-15 13:47 | XMS_ITS | Clinical Summary ---
Author Organization [facility] Address [address] [place] [id number] Care Team Providers Care Building Construction Foreman Name Role Phone Serenity Kenyon MD Primary Care Provider [phone] Allergies Active Allergy Reactions Criticality Noted Date Comments No Clinical Screening - See Comments Fatigue,GI Disturbance,Rash,Visual Disturbance Low 08/15/2017 Medications LISINOPRIL PO Take 20 mg by mouth daily Active OMEPRAZOLE PO Take 20 mg by mouth Active ABO-MNL-FMONCDRF [id number] E PO Act norma Probiotic Product (FLORAJEN BIFIDOBLEND PO) Acti ve Multiple Vitamins-Minerals (ICAPS AREDS 2 PO) A ctive diphenhydrAMINE-ac etaminophen (TYLENOL PM) 25-500 MG tablet Take 1 tablet by mouth nightly as needed Active Zoledronic Acid (RECLAST IV) Active Tocilizumab (ACTEMRA IV) 280 mgs every 4 weeks Active Zoster Vac Recomb Adjuvanted (SHINGRIX IM) Active betamethasone dipropionate (DIPROSONE) 0.05 % external cream Apply topically 2 times daily Active calcipotriene (DOVONOX) 0.005 % external cream Apply topically 2 times daily Active clobetasol (TEMOVATE) 0.05 % external cream 06/09/20 19 Active metoprolol tartrate (LOPRESSOR) 25 MG tablet 05/02/20 19 Active augmented betamethasone dipropionate (DIPROLENE-AF) 0.05 % external cream 07/17/20 20 Active lisinopril (ZESTRIL) 20 MG tablet Take 20 mg by mouth daily 05/16/20 20 Active olopatadine (PATANOL) 0.1 % ophthalmic solutionIndication s:Allergic conjunctivitis of both eyes Place 1 drop into both eyes 2 times daily 15 mL 3 10/06/19 21 Active estradiol (ESTRACE) 0.1 MG/GM vaginal cream APPLY PEA SIZE AMOUNT TO VULVAR AREA TWICE WEEKLY 04/04/20 21 Active metoprolol succinate ER (TOPROL-XL) 25 MG 24 hr tablet Take 25 mg by mouth daily 03/31/20 21 Active sodium chloride (CINDY 128) 5 % ophthalmic ointment 1 Application daily Active sodium chloride (CINDY 128) 5 % ophthalmic solution Place 1-2 drops into both eyes 2 times daily Active Active Problems Problem Noted Date Diagnosed Date Psoriasis 03/06/2016 Thyroid nodule 10/20/2015 Temporal arteritis 10/20/2015 Resolved Problems Problem Noted Date Diagnosed Date Resolved Date iamSPRAIN OF NECK 11/24/2005 01/01/2006 Family History Medical History Relation Comments Coronary Artery Disease Father Hypertension Father Cerebrovascular Disease Mother Hypertension Mother Thyroid Disease Mother Colon Cancer No family hx of Relation Status Comments Father Mother Social History Tobacco Use Types Packs/Day Years Used Date Smoking Tobacco: Former Smokeless Tobacco: Never Tobacco Cessation:Counseling Given: Yes Comments:Quit 50 years ago as of 08/03 (College only.) Alcohol Use Standard Drinks/Week Comments No 0 (1 standard drink = 0.6 oz pur e alcohol) PHQ-2 Answer Date Recorded PHQ-2 Score 1 07/15/2019 Adolescent Education Answer Date Record ed Getting School Help Needed Not on file 06/23 Comments No Sex and Gender Information Value Date Recorded Sex Assigned at Female 11/05/2021 5:24 PM [facility] Legal Sex Female 3:36 AM [facility] Gender Identity Female 11/05/2021 5:24 PM [facility] Sexual Orientation Not on file Last Filed Vital Signs Vital Sign Reading Time Taken Comments Blood Pressure 142/86 11/15/2021 9:30 AM [facility] Pulse 74 11/15/2021 9:30 AM [facility] Temperature 36.7 C (98 F) 11/15/2021 8:07 AM [facility] Respiratory Rate 12 11/15/2021 9:30 AM [facility] Oxygen Saturation 97% 11/15/2021 9:30 AM [facility] Inhaled Oxygen Concentration - - Weight 55.3 kg (122 lb) 11/15/2021 7:55 AM [facility] Height 162.6 cm (5' 4) 11/15/2021 7:55 AM [facility] Body Mass Index 20.94 11/15/2021 7:55 AM COGNOS Plan of Treatment Health Maintenance Due Date Last Done Comments ADVANCE CARE PLANNING 1940 ANNUAL REVIEW OF HM ORDERS 1940 DTAP/TDAP/TD VACCINE (1 - Tdap) 1965 RSV VACCINE (1 - 1-dose 75+ series) 2015 FALL RISK ASSESSMENT 01/24/2020 01/23/2019, 01/22/2018, 07/31/2017 COVID-19 VACCINE ( - 2023-2 5 season) 2024 06/21/2021, 12/07/2020, 11/16/2020 PHQ-2 (once per calendar year) 2024 07/15/2019, 07/15/2019 INFLUENZA VACCINE (Season Ended) 2025 DEXA 03/03/2026 03/03/2011 PNEUMOCOCCAL VACCINE 50+ YEARS Completed 06/17/2018, 04/02/2017 ZOSTER VACCINE Completed 12/17/2018, 06/17/2018 HPV VACCINE Aged Out No longer eligi ble based on patient's age to complete this topic MENINGITIS VACCINE Aged Out No longer eligible based on patient's age to complete this topic Procedures Procedure Name Priority Date/Time Associated Diagnosis Comments DEXA - HIM SCAN Routine 03/03/2011 from Last 3 Months or Most Recently Relevant to Health Maintenance Results * DEXA - HIM Scan (03/03/2011) Anatomical Region Laterality Modality Other us Patient Reported IMG DEXA ORDERABLES Final Resul t from Last 3 Months or Most Recently Relevant to Health Maintenance Insurance [facility] Care Teams Building Construction Foreman Relationship Specialty Start Date End Date Serenity Kenyon MD [facility] [id number] [place] [address] PCP - General 07/10/17
--- NOTE | 2025-03-15 14:11 | CRLHL7_ITS ---
For Patients: As a result of the Century Cures Act, medical imaging exams and procedure reports are released immediately into your electronic medical record. You may view this report before your referring provider. If you have questions, please contact your health care provider. INDICATION: Fall. Left-sided abdominal, groin and hip pain. TECHNIQUE: CT abdomen and pelvis acquired with 69 cc of Isovue 370 intravenous contrast. Coronal and sagittal reformats were obtained. COMPARISON: CT abdomen/pelvis from 07/29/2024. FINDINGS: Lower chest: Platelike atelectasis bibasilar lungs. Liver: Within normal limits. Spleen: Within normal limits. Pancreas: Within normal limits. Gallbladder and bile ducts: Within normal limits. Kidneys: Bilateral renal parapelvic cysts. Adrenal glands: Within normal limits. Bowel: Within normal limits. Vascular: Tortuous atherosclerotic abdominal aorta and branch vessels. Lymph nodes: Within normal limits. Peritoneum: Within normal limits. Pelvis: A nondisplaced fracture involving the left superior pubic ramus. The fracture extends to the pubic symphysis. There is free-fluid and hematoma within the anterior abdominal/pelvic mesentery in close proximity to this fracture. Pessary device is noted. Bones: Nondisplaced left-sided superior pubic ramus fracture as detailed above. No other fractures. Widespread advanced lumbar spondylosis. 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 IMPRESSION: 1. Nondisplaced fracture involving the left superior pubic ramus with associated adjacent abdominal/pelvic free fluid/hematoma. 2. No evidence of solid organ or bowel injury. Please note that all CT scans at this facility use dose modulation, iterative reconstruction, and/or weight-based dosing when appropriate to reduce radiation dose to as low as reasonably achievable. Dictated by Murali Olguin MD @ 03/15/2025 3:51:26 PM (Electronically Signed)
--- NOTE | 2025-03-15 14:12 | ED.GENADULT ---
HPI - General Adult General Chief complaint: Hip Injury/Pain Stated complaint: Fell, unable to weight on left leg Time Seen by Provider: 03/15/25 13:49 History of Present Illness HPI narrative: Patient is an 84-year-old woman who was up watching the storm last night approximately 14 hours ago when she stumbled over her dog's toys. Patient fell in her left hip and was unable to get up without her 's assistance. He got her up in put her in a chair but she is unable to bear weight. She has some minor left-sided abdominal pain as well but most the pain is centered on the left hip and pelvis. She has had no new hematuria. She has not had any other pain and has had no other significant symptoms. Patient did not have lightheadedness but simply tripped at home. Pain is 8/10 and localized to the left lower quadrant and left flank/hip. Related Data Home Medications ?Medication ?Instructions ?Recorded ?Confirmed ascorbic acid (vitamin C) 1,000 mg 1 g PO DAILY 04/19/22 02/17/25 tablet (C-1000) betamethasone dipropionate 0.05 % 1 applic topical DAILY PRN 04/19/22 02/17/25 topical spray with pump calcipotriene 0.005 % topical cream applic topical PRN 04/19/22 02/17/25 metronidazole 0.75 % topical cream applic topical BID 04/19/22 02/17/25 sodium nitrate eye drop 1 drp ophthalmic (eye) BID 04/19/22 02/17/25 Cardio PO 05/11/22 02/17/25 Dha-Eph PO 05/11/22 02/17/25 Lactobacillus acidophilus 1 10 mg PO QDAY 05/11/22 02/17/25 billion cell capsule tocilizumab 200 mg/10 mL (20 280 mg IV .[id number] 07/04/22 02/17/25 mg/mL) intravenous solution (Actemra) vit C 250 mg-vit E 90 mg-zinc 40 1 tab PO QAM AND QHS 07/04/22 02/17/25 mg-copper 1 [id number] capsule (PreserVision AREDS-2) Previous Rx's ?Medication ?Instructions ?Recorded omeprazole 20 mg capsule,delayed 20 mg PO BID #180 caps 02/03/25 release albuterol sulfate 90 mcg/actuation 2 puff inhalation Q6H PRN 12/26/24 aerosol inhaler shortness of breath or wheezing #6.7 grams amlodipine 2.5 mg tablet 2.5 mg PO QDAY #90 tabs 01/08/25 lisinopril 20 mg tablet 20 mg PO DAILY #90 tabs 02/20/25 Allergies Allergy/AdvReac Type Severity Reaction Status Date / Time doxycycline AdvReac Intermediate Abdominal Verified 03/15/25 15:31 Pain latex AdvReac Intermediate Rash Verified 03/15/25 15:31 Review of Systems Status of ROS: Reports: 10 or more systems reviewed and unremarkable except as noted in History and below [facility] Medical History Hiatal hernia ?K44.9 - Diaphragmatic hernia without obstruction or gangrene (ICD-10) Allergic rhinitis ?J30.9 - Allergic rhinitis, unspecified (ICD-10) Urinary incontinence ?R32 - Unspecified urinary incontinence (ICD-10) Bronchitis ?J40 - Bronchitis, not specified as acute or chronic (ICD-10) Hidradenitis suppurativa ?L73.2 - Hidradenitis suppurativa (ICD-10) Surgical History History of repair of hiatal hernia ?Z98.890 - Other specified postprocedural states (ICD-10) ?Z87.19 - Personal history of other diseases of the digestive system (ICD-10) History of tubal ligation ?Z98.51 - Tubal ligation status (ICD-10) History of partial thyroidectomy ?E89.0 - Postprocedural hypothyroidism (ICD-10) History of hernia repair ?Z98.890 - Other specified postprocedural states (ICD-10) ?Z87.19 - Personal history of other diseases of the digestive system (ICD-10) History of colonoscopy ?Z98.890 - Other specified postprocedural states (ICD-10) History of cataract extraction ?Z98.49 - Cataract extraction status, unspecified eye (ICD-10) History of bunionectomy ?Z98.890 - Other specified postprocedural states (ICD-10) Family History Other CKD (chronic kidney disease) Colitis Heart disease High blood pressure Stroke Social History Narrative: Past problem: chronic headache Smoking Status: Never smoker Exam Narrative: Exam Narrative: EXAM GENERAL: Patient appears comfortable and well. EYES: No scleral icterus. ENT: Tympanic membranes and oropharynx normal. THYROID: no thyroid nodules or thyromegaly. LYMPH: No supraclavicular or cervical lymphadenopathy. SKIN: Visible skin seen during exam normal or with benign process only. EXT: No dependent lower extremity pedal edema. Tenderness with any range of motion left hip. Leg is questionably shortened on the left as well. HEART: Regular rate and rhythm with no murmurs, rubs, or gallops. LUNGS: Clear to auscultation bilaterally with no crackles or wheezes. ABD: Soft, non tender, non distended. PSYCH: Good eye contact, speech is not pressured. Const: Vital Signs, click to edit/add: Vital Signs - 24 hr 03/15/25 13:58 Temperature 97.8 F Pulse Rate [Right Pulse Oximeter] 75 Respiratory Rate 18 Blood Pressure [Ri ght Upper Arm] 187/84 H Pulse Oximetry 98 Oxygen Delivery Me thod Room Air Course Course ED Course: Patient seen and examined. CT abdomen pelvis CBC UA comprehensive metabolic panel EKG pending. Vital Signs Vital signs: Initial Vital Signs Temperature 97.8 F 03/15/25 13:58 Temperature Source Temporal Artery Scan 03/15/25 13:58 Pulse Rate 75 03/15/25 13:58 Respiratory Rate 18 03/15/25 13:58 Blood Pressure 187/84 H 03/15/25 13:58 Blood Pressure Mean 118 H 03/15/25 13:58 Blood Pressure Position Sitting 03/15/25 13:58 Pulse Oximetry 98 03/15/25 13:58 Oxygen Delivery Method Room Air 03/15/25 13:58 Vital Signs Temperature 97.8 F 03/15/25 13:58 Pulse Rate 75 03/15/25 13:58 Respiratory Rate 18 03/15/25 13:58 Blood Pressure 187/84 H 03/15/25 13:58 Pulse Oximetry 98 03/15/25 13:58 Oxygen Delivery Method Room Air 03/15/25 13:58 Temperature 97.8 F 03/15/25 13:58 Pulse Rate 75 03/15/25 13:58 Respiratory Rate 18 03/15/25 13:58 Blood Pressure 187/84 H 03/15/25 13:58 Pulse Oximetry 98 03/15/25 13:58 Oxygen Delivery Method Room Air 03/15/25 13:58 Medical Decision Making MDM Narrative Medical decision making narrative: Patient is 84-year-old woman who was up monitoring the storm last night when she the tripped over her dog's toys. She has fallen and fractured the left side of her pelvis. 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 He is currently on a tumor necrosis factor agent. She is unable to get up and labs are otherwise stable EKG shows sinus rhythm. She will be admitted for further evaluation treatment likely transfer for rehab stay. Lab Data Labs: Lab Results 03/15/25 Range/Units 14:23 WBC 6.23 (4.50-11.00) K/uL RBC 4.64 (4.00-5.20) m/uL Hgb 13.1 (12.0-16.0) gm/dL Hct 41.3 (33.0-51.0) % MCV 89 (80-100) fL MCH 28 (26-34) pg MCHC 32 (32-36) gm/dL RDW Coeff of Luz 15.4 (11.5-15.5) % Plt Count 154 (140-440) K/uL Neut % (Auto) 65.8 (42.0-72.0) % Lymph % (Auto) 21.0 (20-44) % [place] % (Auto) 10.1 (0.0-11.0) % Eos % (Auto) 1.3 (0.0-7.0) % Baso % (Auto) 0.5 (0.0-3.0) % Neut # (Auto) 4.10 (1.7-7.0) K/uL Lymph # (Auto) 1.31 (0.90-2.90) K/uL [place] # (Auto) 0.60 (0.00-0.90) K/UL Eos # (Auto) 0.08 (0.00-0.50) K/uL Baso # (Auto) 0.03 (0.00-0.30) K/uL Abs Immat Gran (auto) 0.08 (0.00-0.30) K/uL Imm/Tot Granulo (auto) 1.3 % Sodium 140 (135-149) mmol/L Potassium 3.5 L (3.6-5.1) mmol/L Chloride 106 (96-114) mmol/L Carbon Dioxide 26 (20-32) mmol/L Anion Gap 8 (7-15) mEq/L BUN 17 (7-30) mg/dL Creatinine 0.6 (0.5-1.5) mg/dL Estimated Creat Clear 36.16 Estimated GFR 88 ml/min Glucose 106 (60-115) mg/dL Calcium 9.0 (8.4-10.6) mg/dL Total Bilirubin 0.6 (0.1-1.5) mg/dL AST 48 H (12-35) U/L ALT 22 (4-35) U/L Alkaline Phosphatase 48 (40-150) U/L Total Protein 7.1 (6.0-8.3) g/dL Albumin 4.1 (3.3-5.0) g/dL Discharge Plan Discharge Clinical Impression: Pelvic fracture Patient Disposition: Home, Self-Care Condition: Stable Instructions: Pelvic Fracture (ED) Activity Level: Other Discharge Diet: Other Prescriptions: No Action Lactobacillus acidophilus 1 billion cell capsule 10 mg PO QDAY Cardio PO Dha-Eph PO PreserVision AREDS-2 250-90-40-1 mg capsule 1 tab PO QAM AND QHS albuterol sulfate 90 mcg/actuation HFA aerosol inhaler 2 puff inhalation Q6H PRN (Reason: shortness of breath or wheezing) Qty: 6.7 0RF sodium nitrate eye drop 1 drp ophthalmic (eye) BID Rx Instructions: both eyes twice daily ascorbic acid (vitamin C) [C-1000] 1,000 mg tablet 1 g PO DAILY betamethasone dipropionate 0.05 % spray with pump 1 applic topical DAILY PRN calcipotriene 0.005 % cream TOPICAL PRN Patient Comments: APPLY TO THE BODY AREAS TWICE DAILY ON SUNDAY, SUNDAY, SUNDAY AND SUNDAY. metronidazole 0.75 % cream TOPICAL BID Patient Comments: APPLY TO THE FACE 2 TIMES A DAY Actemra 200 mg/10 mL (20 mg/mL) solution 280 mg IV .[id number] Rx Instructions: administer as a 1 hr infusion every 12-13 weeks omeprazole 20 mg capsule,delayed release(DR/EC) 20 mg PO BID Qty: 180 3RF amlodipine 2.5 mg tablet 2.5 mg PO QDAY Qty: 90 1RF Rx Instructions: Take at night lisinopril 20 mg tablet 20 mg PO DAILY Qty: 90 0RF Follow Up/Referrals: Sadiq Santana MD [Primary Care Provider, Family Practice] Stand Alone Forms: [facility] Info Instructions
[2025-03-15 14:31] LABS: Basophils Absolute Auto 0.03 K/uL (0.00-0.30); Basophils Percent Auto 0.5 % (0.0-3.0); Eosinophils Absolute Auto 0.08 K/uL (0.00-0.50); Eosinophils Percent Auto 1.3 % (0.0-7.0); Hematocrit 41.3 % (33.0-51.0); Hemoglobin* 13.1 gm/dL (12.0-16.0); Immature Granulocytes Abs Auto 0.08 K/uL (0.00-0.30); Immature Granulocytes Pct Auto 1.3 %; Lymphocytes Absolute Auto 1.31 K/uL (0.90-2.90); Mean Corpuscular HGB Conc 32 gm/dL (32-36); Mean Corpuscular Hemoglobin 28 pg (26-34); Mean Corpuscular Volume 89 fL (80-100); Monocytes Percent Auto 10.1 % (0.0-11.0); Neutrophils Percent Auto 65.8 % (42.0-72.0); Platelet Count* 154 K/uL (140-440); RDW Coefficient of Variation % 15.4 % (11.5-15.5); Red Blood Count 4.64 m/uL (4.00-5.20); White Blood Count* 6.23 K/uL (4.50-11.00)
[2025-03-15 14:34] LABS: Slide Review Reflex No
[2025-03-15 14:49] LABS: Albumin* 4.1 g/dL (3.3-5.0); Chloride* 106 mmol/L (96-114); Sodium* 140 mmol/L (135-149)
[2025-03-15 14:50] LABS: Potassium* 3.5 mmol/L (3.6-5.1)
[2025-03-15 14:52] LABS: Anion Gap 8 mEq/L (7-15); Blood Urea Nitrogen* 17 mg/dL (7-30); Carbon Dioxide* 26 mmol/L (20-32); Creatinine* 0.6 mg/dL (0.5-1.5); Est. Creatinine Clearance* 36.16; Estimated Glomerular Filt Rate 88 ml/min
[2025-03-15 14:53] LABS: Alanine Aminotransferase* 22 U/L (4-35); Alkaline Phosphatase* 48 U/L (40-150); Aspartate Amino Transferase* 48 U/L (12-35); Bilirubin Total* 0.6 mg/dL (0.1-1.5); Glucose* 106 mg/dL (60-115); Total Protein* 7.1 g/dL (6.0-8.3)
--- NOTE | 2025-03-15 16:25 | PC.NURSE ---
report given to Silvana on med-surg, pt to 257
[2025-03-15 17:12] LABS: Appearance Urine Slightly Cloudy (Clear); Bilirubin Urine Negative (Negative); Color Urine Yellow (Yellow); Glucose Urine Negative (Negative)
[2025-03-15 17:13] LABS: Blood Urine Trace-intact (Negative); Ketones Urine Trace (Negative); Leukocyte Esterase Urine 1+ (Negative); Nitrite Urine Positive (Negative); Protein Urine 1+ (Negative); Specific Gravity Urine 1.015 (1.000-1.030); Urobilinogen Urine 0.2 (0.2-1.0); pH Urine 6.5 (5.0-8.5)
[2025-03-15 17:14] LABS: Bacteria Urine Moderate; Mucus Urine Few; Squamous Epithelial Cell Urine Few (None-Few); WBC Urine >100 (0-5)
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
[2025-03-15] MEDS: POTASSIUM CHLORIDE 10 MEQ CAPSULE ER 20 MEQ PO (18:21)
[2025-03-15] MEDS: ACETAMINOPHEN 325 MG TABLET 650 MG PO (20:11)
[2025-03-15] MEDS: OMEPRAZOLE 20 MG CAPSULE DR PO (20:11)
[2025-03-15] MEDS: SENNOSIDES/DOCUSATE TABLET 1 TAB PO (20:12)
[2025-03-15] MEDS: SODIUM CHLORIDE 0.9 % (FLUSH) 10 ML SYRINGE 5 ML IVF (20:13)
[2025-03-16 03:00] VITALS: BP 146/87; PULSE 80; RESP 16; O2SAT 94
--- NOTE | 2025-03-16 05:58 | PC.NURSE ---
[id number] Pt rested well during night, denies pain at rest, severe with activity/movement, ambulation. temporarily placed Ice to L hip, pt did not tolerate cold, removed ice. Pain controlled with scheduled tylenol. ambulating with walker/GB/SBA, WBAT denies N/V, chest pain or headache.
[2025-03-16] MEDS: OMEPRAZOLE 20 MG CAPSULE DR PO (06:47)
[2025-03-16 07:19] LABS: Mean Corpuscular HGB Conc 32 gm/dL (32-36); Mean Corpuscular Hemoglobin 28 pg (26-34); Mean Corpuscular Volume 90 fL (80-100); Platelet Count* 155 K/uL (140-440); Red Blood Count 4.58 m/uL (4.00-5.20); White Blood Count* 4.96 K/uL (4.50-11.00)
[2025-03-16 07:24] LABS: Slide Review Reflex No
[2025-03-16 07:38] LABS: Chloride* 108 mmol/L (96-114); Potassium* 3.8 mmol/L (3.6-5.1); Sodium* 140 mmol/L (135-149)
[2025-03-16 07:40] LABS: Blood Urea Nitrogen* 18 mg/dL (7-30); Creatinine* 0.6 mg/dL (0.5-1.5); Est. Creatinine Clearance* 36.16; Estimated Glomerular Filt Rate 88 ml/min
[2025-03-16 07:41] LABS: Anion Gap 6 mEq/L (7-15); Calcium* 8.8 mg/dL (8.4-10.6); Carbon Dioxide* 26 mmol/L (20-32); Glucose* 109 mg/dL (60-115)
[2025-03-16 07:45] LABS: C Reactive Protein* < 0.5 mg/dL (0.5-1.0)
[2025-03-16] MEDS: LIDOCAINE 5% PATCH 1 PATCH TRANSDERMA (08:05)
[2025-03-16 08:10] VITALS: BP 155/81; PULSE 76; RESP 20; TEMP 36.9; O2SAT 96
[2025-03-16] MEDS: ACETAMINOPHEN 325 MG TABLET 650 MG PO ×2 (08:18→12:24)
[2025-03-16] MEDS: lisinopriL 20 MG TABLET PO (08:18)
[2025-03-16] MEDS: SODIUM CHLORIDE 0.9 % (FLUSH) 10 ML SYRINGE 5 ML IVF (08:19)
[2025-03-16] MEDS: SENNOSIDES/DOCUSATE TABLET 1 TAB PO (08:19)
[2025-03-16 11:04] VITALS: BMI 20.7
[2025-03-16 11:08] VITALS: BP 151/78; PULSE 72; RESP 16; TEMP 36.8; O2SAT 95
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
--- NOTE | 2025-03-16 13:29 | PC.NURSE ---
Discharge: Patient pleasant and cooperative. Patient vitally stable, lungs clear, BS WNL, IV removed, catheter intact. Patient rates pelvic pain at most 2-3/10 with no activity, scheduled tylenol given. Lidocaine patch applied to left groin and patient knows to remove it at 8pm. Patient is sba with walker. Patient tolerating regular diet, urinating well, No BM. Patient signed belongings sheet and discharge form. All questions answered regarding education. Patient left the floor by wheelchair to home at 1327.
--- NOTE | 2025-03-16 15:40 | PC.SOCIAL ---
Discharge planning: SW met with patient to discuss home health PT and OT. Patient was agreeable to trying these services. Patient states that she has some support from her , a couple of friends, neighbors and her daughters if she really needs anything. Patient discussed her worry about having to end her volunteer commitments, but hopes when she talks with them that she can take a ANCELMO. Patient denies any concerns with obtaining food or transportation and states that her is able to still do this. Patient reports no needs at this time. SW [facility] care [facility], [facility] and [facility]. SW received call from [facility] stating that they can't accept patient until the week of March 30 and would like a call back if that works for the patient. SW to wait to hear from other agencies prior to calling [facility] back.
--- NOTE | 2025-03-17 11:02 | PC.SOCIAL ---
Discharge planning: SW received call from [facility] that they are able to open services with patient on 03/18. SW called patient and left a voicemail confirming this. SW left call back number if patient has any questions.
== END 2025-03-16 13:27 | disposition home or self-care (01) ==
LOC: ED 16:11 → MEDSURG 16:29
PROVIDERS: Admitting Provider Internal Medicine; Emergency Provider Internal Medicine; PCP Family Medicine; Visit Provider Internal Medicine
DX: S32.9XXA Fracture of unspecified parts of lumbosacral spine and pelvis, initial encounter for closed fracture (principal); R10.32 Left lower quadrant pain; R10.2 Pelvic and perineal pain; R26.2 Difficulty in walking, not elsewhere classified; R26.0 Ataxic gait; M25.552 Pain in left hip; K21.9 Gastro-esophageal reflux disease without esophagitis; M81.0 Age-related osteoporosis without current pathological fracture; I10 Essential (primary) hypertension; E78.5 Hyperlipidemia, unspecified; Z98.890 Other specified postprocedural states; Z98.51 Tubal ligation status; E89.0 Postprocedural hypothyroidism; M85.80 Other specified disorders of bone density and structure, unspecified site; Z87.19 Personal history of other diseases of the digestive system
CPT/HCPCS: 36415; 74177; 80048; 80053; 81001; 81003; 83735; 85025; 85027; 86140; 87086; 93005; 97110; 97116; 97161; 97165; 97530; 97535; 99284; 99285; A9270; G0378; Q9967

== ENCOUNTER 2025-04-06 12:11 | Outpatient (CLI) | payer MEDICARE, SELFPAY | END 2025-04-06 12:12 | disposition home or self-care (01) | LOC: NFLDREF 04-08 00:43 | PROVIDERS: PCP Family Medicine; Referring Provider Family Medicine; Visit Provider Family Medicine | DX: N39.0 Urinary tract infection, site not specified (principal) | CPT/HCPCS: 87086 ==